=== PATIENT | female | born 1990 | race Two or more races ===

== ENCOUNTER → 2018-05-20 | Outpatient (CLI) | payer MEDICAID ==
[~2018-05-20] MED LIST: HYDR200T77 PO; PREN-127 PO
== END ==
LOC: LAB 14:19
PROVIDERS: ATTEND Obstetrics & Gynecology
DX: Z34.91 Encounter for supervision of normal pregnancy, unspecified, first trimester (principal); B96.89 Other specified bacterial agents as the cause of diseases classified elsewhere
CPT/HCPCS: 36415; 86850; 86900; 86901; 87088

== ENCOUNTER → 2018-05-28 | Outpatient (CLI) | payer SELFPAY ==
[~2018-05-28] MED LIST changes: +FLU60SYR36 IM
== END ==
LOC: LAB 12:47
PROVIDERS: ATTEND Student in an Organized Health Care Education/Training Program
DX: Z34.91 Encounter for supervision of normal pregnancy, unspecified, first trimester (principal)
CPT/HCPCS: 87491; 87591

== ENCOUNTER → 2018-07-31 | Outpatient (CLI) | payer MEDICAID ==
[~2018-07-31] MED LIST changes: +ASPI-760 PO; +CALC-515 PO
[2018-07-31 15:32] LABS: PLATELET COUNT, AUTOMATED 189 K/uL (150-450)
== END ==
LOC: LAB 15:05
DX: M06.1 Adult-onset Still's disease (principal); Z79.899 Other long term (current) drug therapy
CPT/HCPCS: 36415; 82565; 82728; 84450; 85025; 85651

== ENCOUNTER → 2018-09-19 | Outpatient (CLI) | payer OTHER, MEDICAID ==
--- NOTE | 2018-09-19 14:41 | RADIOLOGY IMAGING REPORT ---
FACILITY: PATIENT NAME: Kristin Wilks : 1990 MR: [id number] V: [id number] EXAM DATE: ORDERING PHYSICIAN: DAYAMI GUZMAN TECHNOLOGIST: Location: [facility] - [place] Patient: Kristin Wilks : 1990 Visit/Account:[id number] Date of Sevice: 09/19/2018 [facility] [place] H[place]ORY: Still's disease in COMPARISON: 08/22/2018, 05/28/2018 FINDINGS: Intrauterine gestations: 1 presentation: Vertex heart rate: 156 bpm Amniotic fluid volume: BE 15.6 cm; Largest amniotic fluid pocket 5.3 cm Placenta: Anterior Uterus: Gravid, otherwise normal Maternal adnexa: Negative Cervix: Closed Gestational Parameters: BPD: 6.7 cm; 27 weeks/ 0 days-98 percentile HC: 24.1 cm; 26 weeks/ 2 days-89th percentile AC: 22.4 cm; 26 weeks/ 6 days-96 percentile FL: 4.8 cm; 26 weeks/ 0 days-81st percentile Average ultrasound age (AUA): 26 weeks/ 4 days Estimated weight (EFW): 935 grams +/- 137 grams. Fetus greater than 98 percentile based by LMP . IMPRESSION: 1. IUP of 26 weeks four days. CORTEZ of 12/22/2018. This is six days ahead of the Nicky ultrasound t hat had an CORTEZ calculated at 12/28/2018. It is 15 days ahead of the initial ultrasound that had an CORTEZ calculated at 01/06/2019 Report Dictated By: Lambert Estrada MD at 09/19/2018 2:18 PM Report E-Signed By: Lambert Estrada MD at 09/19/2018 2:36 PM WSN:NATO
== END ==
LOC: US 10:10
PROVIDERS: ATTEND Obstetrics & Gynecology
DX: Z02.9 Encounter for administrative examinations, unspecified (principal)

== ENCOUNTER → 2018-09-26 | Outpatient (CLI) | payer OTHER, MEDICAID ==
[~2018-09-26] MED LIST changes: +BLOO-1511 MC; +BLOO-960 ASDIRECTED; +LANC-608 MC
[2018-09-26 15:45] LABS: PLATELET COUNT, AUTOMATED 147 K/uL (150-450)
== END ==
LOC: LAB 14:38
PROVIDERS: ATTEND Obstetrics & Gynecology
DX: Z34.90 Encounter for supervision of normal pregnancy, unspecified, unspecified trimester (principal); M08.20 Juvenile rheumatoid arthritis with systemic onset, unspecified site
CPT/HCPCS: 36415; 82950; 85025

== ENCOUNTER 2018-09-30 15:14 | Outpatient (RCR) | payer OTHER, MEDICAID ==
--- NOTE | 2018-10-01 10:37 | Medical Nutrition Therapy ---
Nutrition/Food History Breakfast: 1 / cherrios/milk, 1 sl toast, 1 egg, banana Lunch: carrots, egg, chick peas, pasta Dinner: 1c brown rice, chicken/beef, 2c veggies Snacks: fruit, 4-5 gram crackers or pie, cookes Nutritional Education Nutrition Education Topic: Diabetic Nutrition (gestational ) Learning Readiness: Interested Teaching Methods: Discussion, Handout, Demonstration Response to Teaching: Verbalize understanding Teaching Recipient: Patient Nutrition Counseling: Pt states ethnicity from [facility]. Pt declined dental hygiene professor line. Provided diet info for [facility] food culture. Reviewed glycemic response to CHO and increased glycemic response to processed CHO. Identified high and low GI foods pt eats. Provided meal plan of 30-45gm CHO bkfts, 45-60, lunch and supper and 15-30 gm CHO snacks tid. Encouraged pt to decrease portion sizes of CHO and increase protein and healthy fats. Pt will f/u to review meals and Bg 10/06 @ 11:00. Nutrition Monitoring & Eval RD Patient Assessment Time: [address] Assessment Type: RD Education Nutritional Comment: provided 45 minutes diabetes education for gestational DM focusing on nutrition. MINNIE GARG Oct 01, 2018 10:37
--- NOTE | 2018-10-06 12:32 | Medical Nutrition Therapy ---
Nutritional Education Nutrition Education Topic: Diabetic Nutrition Learning Readiness: Interested Teaching Methods: Discussion Response to Teaching: Verbalize understanding Teaching Recipient: Patient Nutrition Counseling: F/U for gestational DM. Pt has no concerns with taking BG. BG reading post meals < 120 except for 1 reading of 120. AB fasting elevated up to 111. Reviewed meals. Pt is eating CHO within her meal plan. Pt states she is hungery between meals and has been eating a snack. Encouraged pt to try increase protein before bedtime and limit CHO or just try protein only at bedtime. Pt did find that she had a lower BG in AM when she walked after supper. Encourage pt to cont exercise. Recommend pt call for any future questions or concerns. BK Nutrition Monitoring & Eval RD Patient Assessment Time: [address] Assessment Type: RD Education Nutritional Comment: provided 30 minutes f/u diabetes education for gestational DM focusing on nutrition and BG monitoring Copies To Copies to: DAYAMI GUZMAN MD ; MINNIE GARG 10, 2019 12:32
== END 2018-10-16 13:02 | disposition home or self-care (01) ==
LOC: DIET 15:14
PROVIDERS: ATTEND Obstetrics & Gynecology
DX: O24.419 Gestational diabetes mellitus in pregnancy, unspecified control (principal)
CPT/HCPCS: G0108 ×3

== ENCOUNTER → 2018-11-14 | Outpatient (CLI) | payer OTHER, MEDICAID ==
[~2018-11-14] MED LIST changes: +DIPH0.5S2 IM; +INSU100I5 SQ; +NEED-498 MC; +RANI-375 PO
--- NOTE | 2018-11-14 10:56 | RADIOLOGY IMAGING REPORT ---
FACILITY: [facility] PATIENT NAME: Kristin Wilks : 1990 MR: [id number] V: [id number] EXAM DATE: ORDERING PHYSICIAN: DAYAMI GUZMAN TECHNOLOGIST: Location: [facility] - [place] Patient: Kristin Wilks : 1990 Visit/Account:[id number] Date of Sevice: 11/14/2018 EXAMINATION: Ultrasound transabdominal OB > 14 weeks with anatomic evaluation HISTORY: Gestational diabetes, still's disease COMPARISON: There for 2018 TECHNIQUE: Transabdominal imaging was performed for assessment of the fetus and maternal pelvic structures. T ransvaginal imaging was not performed. FINDINGS: Placenta: Anterior anterior without previa. Uterus: Gravid, otherwise normal Cervix: Long and closed. Maternal Ovaries: Not visualized. Maternal and other adnexa findings: Not visualized Intrauterine gestations: One. presentation: Vertex heart rate: Normal and regular at 160 bpm Amniotic fluid index: 12.17 cm Largest amniotic fluid pocket: 6.08 cm Gestational Parameters: BPD: 8.98 cm 36 weeks/ three days, greater than 98th percentile HC: 32.16 cm 36 weeks/ three days, 96% AC: 31.26 cm 35 weeks/ two days, greater than 98% FL: 6.94 cm 35 weeks/ five days, 97% Average ultrasound age (AUA): 36 weeks/zero days, CORTEZ 12/12/2018 Estimated gestational age by CORTEZ: 32 weeks/three days, CORTEZ 01/06/2019 Estimated weight (EFW): 2705 grams +/- 395 grams EFW for CORTEZ: Greater than 98% percentile Anatomic Survey: Anatomic survey not performed IMPRESSION: Single viable fetus in vertex presentation with an estimated gestational age by measurem ents of 36 weeks and zero days. The estimated gestational age by LMP is 32 weeks and three days. Estimated weight is 2705 g which is greater than the 98th percentile Report Dictated By: Alma Tolbert MD at 11/14/2018 10:07 AM Report E-Signed By: Alma Tolbert MD at 11/14/2018 10:51 AM WSN:[email or web address]
== END ==
LOC: US 09:32
PROVIDERS: ATTEND Obstetrics & Gynecology
DX: Z02.9 Encounter for administrative examinations, unspecified (principal)

== ENCOUNTER → 2018-11-21 | Outpatient (CLI) | payer OTHER, MEDICAID ==
--- NOTE | 2018-11-21 11:12 | RADIOLOGY IMAGING REPORT ---
FACILITY: [facility] [place] PATIENT NAME: Kristin Wilks : 1990 MR: [id number] V: [id number] EXAM DATE: ORDERING PHYSICIAN: MANAS SAMS TECHNOLOGIST: [place] [facility] [place]in [place] : 1990 Visit/Account:[id number] Date of Sevice: 11/21/2018 EXAMINATION: Limited Transabdominal OB Ultrasound >14 wks Without Full Anatomic Survey 11/21/2018 9:13 AM HISTORY: BE. Gestational diabetes. COMPARISON: 11/14/2018 FINDINGS: Intrauterine gestations: one presentation: vertex heart rate: 149 bpm Amniotic fluid index: 11.8 cm Largest amniotic fluid pocket 5.2 cm Placenta: Anterior without previa Uterus: gravid, otherwise normal Maternal adnexa: Not imaged Cervix: closed Gestational Parameters: Dating measurements were not done. Anatomic Survey: Complete anatomic survey was not performed. IMPRESSION: Single viable IUP in vertex presentation. BE is within normal range, 11.8 cm (MVP 5.2 cm). Report Dictated By: Joseph Yip MD at 11/21/2018 11:05 AM Report E-Signed By: Joseph Yip MD at 11/21/2018 11:09 AM WSN:NATO
== END ==
LOC: US 09:07
PROVIDERS: ATTEND Obstetrics & Gynecology
DX: Z02.9 Encounter for administrative examinations, unspecified (principal)

== ENCOUNTER → 2018-11-28 | Outpatient (CLI) | payer OTHER, MEDICAID ==
--- NOTE | 2018-11-28 13:43 | RADIOLOGY IMAGING REPORT ---
FACILITY: [facility] - [place] PATIENT NAME: Kristin Wilks : 1990 MR: [id number] V: [id number] EXAM DATE: ORDERING PHYSICIAN: DAYAMI GUZMAN TECHNOLOGIST: Location: [facility] [place] Patient: Kristin Wilks : 1990 Visit/Account:[id number] Date of Sevice: 11/28/2018 EXAMINATION: Ultrasound transabdominal OB > 14 weeks with anatomic evaluation HISTORY: Gestational diabetes and third trimester, measure BE COMPARISON: November 21, 2018 TECHNIQUE: Transabdominal imaging was performed for assessment of the fetus and maternal pelvic structures. T ransvaginal imaging was not performed. FINDINGS: Placenta: Anterior without previa. Uterus: Gravid, otherwise normal Cervix: Not evaluated Maternal Ovaries: Not visualized. Maternal and other adnexa findings: Not evaluated Intrauterine gestations: One. presentation: Cephalic heart rate: Normal and regular at 153 bpm Amniotic fluid index: 11.41 cm Largest amniotic fluid pocket: 4.60 cm Gestational Parameters: Dating measurements were not done. IMPRESSION: Single viable fetus in cephalic presentation with an estimated gestational age by LMP of 34 weeks and three days. BE is 11.41 cm (MDP 4.60) Report Dictated By: Alma Tolbert MD at 11/28/2018 1:35 PM Report E-Signed By: Alma Tolbert MD at 11/28/2018 1:38 PM WSN:AMICIVN
== END ==
LOC: RAD 09:00
PROVIDERS: ATTEND Obstetrics & Gynecology
DX: Z02.9 Encounter for administrative examinations, unspecified (principal)

== ENCOUNTER → 2018-12-05 | Outpatient (CLI) | payer OTHER, MEDICAID ==
--- NOTE | 2018-12-05 14:52 | RADIOLOGY IMAGING REPORT ---
FACILITY: [facility] PATIENT NAME: Kristin Wilks : 1990 MR: [id number] V: [id number] EXAM DATE: ORDERING PHYSICIAN: MANAS SAMS TECHNOLOGIST: Location: [facility] Patient: Kristin Wilks : 1990 Visit/Account:[id number] Date of Sevice: 12/05/2018 EXAMINATION: Limited Transabdominal OB Ultrasound >14 wks Without Full Anatomic Survey 12/05/2018 9:15 AM HISTORY: BE COMPARISON: 2017 FINDINGS: Intrauterine gestations: one presentation: vertex heart rate: 149 bpm Amniotic fluid index: 12.3 cm Largest amniotic fluid pocket 6.0 cm Placenta: Anterior without previa Uterus: gravid, otherwise normal Maternal adnexa: negative Cervix: Not well seen due to the position of the head. Gestational Parameters: Dating measurements were not obtained. Anatomic Survey: Complete anatomic survey was not performed. Right hydrocele is noted. IMPRESSION: 1. Single viable IUP in vertex presentation. 2. BE 12.3 cm, MVP 6.0 cm. 3. Right hydrocele is noted around the testicle, likely incidental. Report Dictated By: Joseph Yip MD at 12/05/2018 2:46 PM Report E-Signed By: Joseph Yip MD at 12/05/2018 2:48 PM WSN:NATO
== END ==
LOC: RAD 09:12
PROVIDERS: ATTEND Obstetrics & Gynecology
DX: O24.419 Gestational diabetes mellitus in pregnancy, unspecified control (principal)

== ENCOUNTER → 2018-12-12 | Outpatient (CLI) | payer OTHER, MEDICAID | LOC: LAB 09:05 | PROVIDERS: ATTEND Obstetrics & Gynecology | DX: Z36.85 Encounter for antenatal screening for Streptococcus B (principal) | CPT/HCPCS: 87081 ==

== ENCOUNTER → 2018-12-12 | Outpatient (CLI) | payer OTHER, MEDICAID ==
--- NOTE | 2018-12-12 14:32 | RADIOLOGY IMAGING REPORT ---
[place] [facility] [place]IENT NAME: Kristin Wilks : 1990 MR: [id number] V: [id number] EXAM DATE: ORDERING PHYSICIAN: MANAS SAMS TECHNOLOGIST: Location: [facility] Patient: Kristin Wilks : 1990 Visit/Account:[id number] Date of Sevice: 12/12/2018 EXAMINATION: Ultrasound transabdominal OB > 14 weeks with anatomic evaluation HISTORY: Gestational diabetes COMPARISON: December 05, 2018 TECHNIQUE: Transabdominal imaging was performed for assessment of the fetus and maternal pelvic structures. T ransvaginal imaging was not performed. FINDINGS: Placenta: Anterior without previa. Uterus: Gravid, otherwise normal Cervix: Long and closed. Maternal Ovaries: Not visualized. Maternal and other adnexa findings: Not visualized Intrauterine gestations: One. presentation: Cephalic heart rate: Normal and regular at 139 bpm Amniotic fluid index: 14.07 cm Largest amniotic fluid pocket: 5.34 cm Gestational Parameters: BPD: 9.55 cm 39 weeks/ zero days, greater than 98% HC: 33.97 cm 39 weeks/ one days, 83% AC: 33.49 cm 37 weeks/ three days, 85% FL: 7.52 cm 38 weeks/ four days, 90% Average ultrasound age (AUA): 38 weeks/four days, CORTEZ 12/22/2018 Estimated gestational age by CORTEZ: 36 weeks/three days, CORTEZ 01/06/2019 Estimated weight (EFW): 3376 grams +/- 493 grams EFW for CORTEZ: 90 percentile Anatomic Survey: Anatomic survey was not performed: again noted is a hydrocele IMPRESSION: Single viable fetus in cephalic presentation with an estimated gestational age of 38 wee ks and four days by measurements. Estimated gestational age by LMP is 36 weeks and three days. Estimated weight is 3376 g which is equivalent to the 90th percentile Report Dictated By: Alma Tolbert MD at 12/12/2018 2:23 PM Report E-Signed By: Alma Tolbert MD at 12/12/2018 2:28 PM WSN:JOCE
== END ==
LOC: RAD 08:59
PROVIDERS: ATTEND Obstetrics & Gynecology
DX: Z02.9 Encounter for administrative examinations, unspecified (principal)

== ENCOUNTER → 2018-12-19 | Outpatient (CLI) | payer OTHER, MEDICAID ==
--- NOTE | 2018-12-19 10:09 | RADIOLOGY IMAGING REPORT ---
FACILITY: [facility] - [place] PATIENT NAME: Kristin Wilks : 1990 MR: [id number] V: [id number] EXAM DATE: ORDERING PHYSICIAN: DAYAMI GUZMAN TECHNOLOGIST: Location: [facility] [place] Patient: Kristin Wilks : 1990 Visit/Account:[id number] Date of Sevice: 12/19/2018 EXAMINATION: Ultrasound transabdominal OB > 14 weeks with anatomic evaluation HISTORY: Gestational diabetes COMPARISON: December 12, 2018, limited study for BE TECHNIQUE: Transabdominal imaging was performed for assessment of the fetus and maternal pelvic structures. T ransvaginal imaging was not performed. FINDINGS: Placenta: Anterior without previa. Uterus: Gravid, otherwise normal Cervix: Long and closed. Maternal Ovaries: Not visualized. Maternal and other adnexa findings: Not visualized Intrauterine gestations: One. presentation: Cephalic heart rate: Normal and regular at 142 bpm Amniotic fluid index: 10.77 cm Largest amniotic fluid pocket: 4.75 cm Gestational age by LMP is 37 weeks and three days. Incidentally noted is a hydrocele IMPRESSION: BE measured 10.77 cm. The largest pocket 4.75 cm. Estimated gestational age by LMP is 37 weeks and three days Incidental note of a hydrocele again seen Report Dictated By: Alma Tolbert MD at 12/19/2018 10:00 AM Report E-Signed By: Alma Tolbert MD at 12/19/2018 10:04 AM WSN:AMICIVN
== END ==
LOC: RAD 09:10
PROVIDERS: ATTEND Obstetrics & Gynecology
DX: O24.419 Gestational diabetes mellitus in pregnancy, unspecified control (principal)

== ENCOUNTER 2018-12-25 22:23 | Inpatient (IN) | payer OTHER, MEDICAID ==
[~2018-12-25] VITALS: Ht 162.6 cm; Wt 76.7 kg
[~2018-12-25 22:23] MED LIST changes: -RANI-375 PO; +RANI-886 PO
[2018-12-25] MEDS ORDERED: FAMOTIDINE(*) 20MG/50ML PREMIX 50 ML IVPB PRN (23:19)
[2018-12-25] MEDS ORDERED: ceFAZolin(*) 2GM/D5W 50ML 50 ML IVPB PRN (23:19)
[2018-12-25] MEDS ORDERED: OXYTOCIN 30 UNIT/NS 500 ML 500 ML IV PRN (23:19)
[2018-12-25] MEDS ORDERED: METOCLOPRAMIDE 10 MG/2 ML SDV IVP PRN (23:20)
[2018-12-25] MEDS ORDERED: LIDOCAINE 1% LOCAL 300 MG/30ML INJ PRN (23:20)
[2018-12-25] MEDS ORDERED: FLUSH 10 ML SYR IVP PRN (23:20)
[2018-12-25] MEDS ORDERED: fentaNYL CITR 100 MCG/2 ML AMP IVP PRN (23:20)
[2018-12-25] MEDS ORDERED: INSULIN DETEMIR 100 UN/ML VIAL SUBQ ONE (23:50)
[2018-12-26] VITALS (13 sets, daily range): BP systolic 89–127; BP diastolic 49–79; Ht 162.6 cm; Wt 76.7 kg
[2018-12-26 00:39] LABS: PLATELET COUNT, AUTOMATED 105 K/uL (150-450)
[2018-12-26] MEDS: LR(*) 1000 ML BAG 1,000 ML IV SCH ×2 (02:15→05:00)
[2018-12-26] MEDS ORDERED: LIDO/EPI 2% MPF 1:200,000 20ML EPI PRN (02:25)
[2018-12-26] MEDS ORDERED: FENTANYL/ROPIVACAINE 100 ML BAG EPI PRN (02:25)
[2018-12-26] MEDS ORDERED: diphenhydrAMINE 50 MG/ML VIAL IV PRN (02:25)
[2018-12-26] MEDS ORDERED: LIDOCAINE/PF 2% 200MG/10ML AMP 200 MG/10 ML AMPUL EPI PRN (02:25)
[2018-12-26] MEDS ORDERED: fentaNYL CITR 100 MCG/2 ML AMP IT PRN (02:25)
[2018-12-26] MEDS ORDERED: ONDANSETRON 4 MG/2 ML VIAL IVP PRN (02:25)
[2018-12-26] MEDS ORDERED: BUPIVACAINE 0.5% INJ 30ML VIAL EPI PRN (02:25)
[2018-12-26] MEDS ORDERED: BUPIVACAINE 0.25% MPF INJ EPI PRN (02:25)
--- NOTE | 2018-12-26 02:41 | History & Physical ---
History of Present Illness Age of Patient: 28 : 1 Para or TPAL: 0 EDC per LMP: Jan 06, 2019 Estimated Gestational Age: 38.3 Chief Complaint Pt is a at 38 3/7 by LMP and first trimester US with an CORTEZ of 01/06/19 here today because she reports leaking of clear fluid at 2130 on 12/25/18 at home. + FM and no vaginal bleeding. She started contractions every 5-6 minutes after that time, but they were not painful. She had a scheduled medical induction on 12/29/18 for A2GDM and also has a history fo Stills disease that has been managed by and Dr Dobbins who recommended she be induced at 39 07 She denies RESENDEZ, vision changes, or RUQ/epigastric pain. History Patient's Blood Type: B Positive Rubella Status: Immune Group B Strep Screen: Negative Allergies: Coded Allergies: No Known Drug Allergies (Unverified , 05/20/18) Social History: Denies tobacco, ETCOh and illicit drug including marijuana. She is and monogomous Family History: FH: hypertension FATHER MOTHER Med Rec Home Meds Active Scripts [place], Insulin Disposable (INSULIN PEN NEEDLE) 1 Each Dis.needle, EACH MC DAILY, #1 1 Refill Use to inject insulin sub q QHS Prov:DAYAMI GUZMAN MD 11/14/18 Insulin Detemir 100 UN/ML PEN (Levemir Flextouch) 100 Unit/1 Ml Insuln.pen, 20 UNITS SQ QHS, #2 EACH 2 Refills Prov:DAYAMI GUZMAN MD 11/14/18 Ranitidine Hcl (ZANTAC 75) 75 Mg Tablet, 75 MG PO BID for 30 Days, #30 TAB 3 Refills Prov:MANAS SAMS DO 11/14/18 Lancets (COMFORT LANCETS) 1 Each Each, EACH MC QID, #100 6 Refills Prov:DAYAMI GUZMAN MD 09/26/18 Blood-Glucose Meter (BLOOD GLUCOSE METER) 1 Each Each, EACH ASDIRECTED DIRECTED, #1 FSBS QID Prov:DAYAMI GUZMAN MD 09/26/18 Blood Sugar Diagnostic (GLUCOSE TEST STRIP) 1 Each Strip, 1 EACH MC QID, #100 STRIP 6 Refills Prov:DAYAMI GUZMAN MD 09/26/18 Reported Medications Calcium Carbonate (TUMS) 200 Mg Tab.chew, 200 MG PO PRN, TAB.CHEW 07/31/18 Aspirin (LOW DOSE ASPIRIN EC) 81 Mg Tablet.dr, 81 MG PO 07/31/18 Vits W-Ca,Fe,Fa(<1MG) ( VITAMINS) 1 Each Tablet, 1 EACH PO DAILY, TAB 05/20/18 Hydroxychloroquine Sulfate (PLAQUENIL) 200 Mg Tablet, 200 MG PO BID 05/20/18 Review of Systems Constitutional: No Fever Neurological: No Syncope, No Dizziness Eyes: No Vision Change Cardiovascular: No Chest Pain Respiratory: No Shortness of Breath Gastrointestinal: No Nausea, No Vomiting, No Diarrhea; Abdominal Pain (moderate contraction pain at the time of this note) Musculoskeletal: No Pain Psychiatric: No Depression, No Anxiety Exam General Exam General Apperance: Alert/Awake/No Acute Distress Neuro: No Gross deficits Eyes: Normal Extraocular Movement & Vison ENT: Normal Cardiovascular: Regular Rate and Rhythm Respiratory: No Respiratory Distress Abdomen: Gravid - Non-Tender, RUQ Non-Tender Musculoskeletal: No Weakness/Pain Integumentary: Skin Intact without Lesions or Rash Psychological: Alert & Oriented X3, Appropriate Mood & Affect Vaginal Discharge/Fluid?: Bloody Show, Clear Fluid, Small Amount Cervical Dialation: 5 (not rechecked from nurses SVE) Cervical Effacement (%): 85 Cervical Consistency: Soft Cervical Position: Mid Station: -1 Presentation: Vertex Uterine Contractions(Q min): 2 Uterine Contraction Strength: Moderate UC Resting Tone: Soft Fetus Feeling Movement?: Yes Heart Tones: 150 Heart Tone Variabilty: Moderate FHT Accelerations: Present, 15X15 FHT Decelerations: None FHT Category: I Medical Decision Making Data Points Result Diagram: 12/25/18 0021 Assessment and Plan SUBWAY GUARD Assessment: Stable SUBWAY GUARD Plan: Routine Labor Care Problems: (1) SROM (spontaneous rupture of membranes) Onset Date: 12/25/2018 Status: Acute Assessment & Plan: SN is a 28 y.o. at 38w3d wks with an Estimated Date of Delivery: 01/06/19 dated by definite LMP and first trimester US here today with complaints of leaking of fluid Labor state: Active labor, good cervical change since admission at 2300 12/24/09 with +SROM with amnisure, expectant management at this time as pt is having a re gular, strong contraction pattern. Pt is requesting an epidural now, so after placed encourage side to side extreme lateral with peanut ball in place to facilitate descent. BS q 1 hour to keep between 72-120. Will consult OB for insulin if needed well-being: Category I FHT: Continuous monitoring for A2GDM and epidural Maternal well-being: VSS. normotensive and afebrile, SROM at 2130 on 12/25/18 at home for clear moderate fluid PNL: GBS Neg, Type/Rh B+, rubella Immune Pain Management: Requesting an epidural now Feed: Breast PPBCM: Thinking about the [place] c/b: * Maternal Stills Disease: Managed by Dr. Rivera and Dr Dobbins: Plaquenil 200mg BID * LGA: last growth US was 90%tile on 12/12/18 * right hydrocele: Will make Peds aware after delivery * A2GDM: on Levamir 20 units at HS with good control Anticipate , re-evaluate in 2-3 hours or prn (2) GDM, class A2 Assessment & Plan: Q 1 hour BS to keep between 72- 120. If greater than 120 will consult OB for insulin management. (3) 38 weeks gestation of Status: Acute (4) Still's disease Status: Chronic MICHA JAMES CNM December 26, 2018 02:41
[2018-12-26] MEDS ORDERED: ePHEDrine 25 MG/5 ML DISP.SYR IVP ONE (02:56)
--- NOTE | 2018-12-26 03:39 | Anesthesia OB Pre-Anes Eval ---
History of Present Illness Anesthesia Start Date: December 26, 2018 Anesthesia Start Time: 01:45 OB Anesthesia Diagnosis: spontaneous labor, spontaneous ROM Current Complication: diabetes, other (Still's disease (autoimmune inflamatory disease) steroids stopped 3 mos prior to ) Complications: none known EDC: Jan 06, 2019 : 1 Para: 0 Vital Signs: 110/70 96%, 19, 106 97.6F Pain Ratin Result Diagram: 12/25/18 0021 Height (Inches): 66 Weight (Pounds): 169 BMI (kg/m2): 27 Past Medical History Medical History: diabetes (insulin dependant) Surgical History: other (wisdom teeth) Previous Anesthesia: general, other Attended Childbirth Classes?: No Hx Anesthesia Reactions: No Hx Family Anesthesia Reaction: No Home Meds Active Scripts Oxycodone Hcl/Acetaminophen (PERCOCET 5-325 MG TABLET) 1 Each Tablet, 1 TAB PO Q4-6H PRN for pain, #30 TAB 0 Refills Prov:DAYAMI GUZMAN MD 12/26/18 [place], Insulin Disposable (INSULIN PEN NEEDLE) 1 Each Dis.needle, EACH MC DAILY, #1 1 Refill Use to inject insulin sub q QHS Prov:DAYAMI GUZMAN MD 11/14/18 Insulin Detemir 100 UN/ML PEN (Levemir Flextouch) 100 Unit/1 Ml Insuln.pen, 20 UNITS SQ QHS, #2 EACH 2 Refills Prov:DAYAMI GUZMAN MD 11/14/18 Ranitidine Hcl (ZANTAC 75) 75 Mg Tablet, 75 MG PO BID for 30 Days, #30 TAB 3 Refills Prov:MANAS SAMS DO 11/14/18 Lancets (COMFORT LANCETS) 1 Each Each, EACH MC QID, #100 6 Refills Prov:DAYAMI GUZMAN MD 09/26/18 Blood-Glucose Meter (BLOOD GLUCOSE METER) 1 Each Each, EACH ASDIRECTED DIRECTED, #1 FSBS QID Prov:DAYAMI GUZMAN MD 09/26/18 Blood Sugar Diagnostic (GLUCOSE TEST STRIP) 1 Each Strip, 1 EACH MC QID, #100 STRIP 6 Refills Prov:DAYAMI GUZMAN MD 09/26/18 Reported Medications Calcium Carbonate (TUMS) 200 Mg Tab.chew, 200 MG PO PRN, TAB.CHEW 07/31/18 Aspirin (LOW DOSE ASPIRIN EC) 81 Mg Tablet.dr, 81 MG PO 07/31/18 Vits W-Ca,Fe,Fa(<1MG) ( VITAMINS) 1 Each Tablet, 1 EACH PO DAILY, TAB 05/20/18 Hydroxychloroquine Sulfate (PLAQUENIL) 200 Mg Tablet, 200 MG PO BID 05/20/18 Allergies: Coded Allergies: No Known Drug Allergies (Unverified , 05/20/18) Anesthesia OB ROS ENT: Denies Tooth caps, Denies Loose teeth, Denies Chipped teeth, Denies Dentures, Denies Bridges, Denies Retainers, Denies Veneers, Denies Implants, Denies Tongue ring, Denies Other Pulmonary: No asthma, No smoker (pks/day/yrs), No other Airway Class: ll Cardiovascular ROS: No edema, No arrhythmia, No other GI ROS: clear liquids Last Solids Date: December 25, 2018 Last Solids Time: 21:00 ROS: No Herpes, No STD(s), No Liver Disease, No Renal Disease, No Other Endocrine ROS: diabetes Musculoskeletal ROS: other (Still's disease) ASA Classification: 3 (DM and stills ds.) Assessment and Plan Anesthesia Plan: CSE Assessment: Calm cooperative female with supportive at her side. Full review of consent with both present. Questions answered. Anesthesia Stop Day: December 26, 2018 Anesthesia Stop Time: 10:26 (Pt with epidural to OR at 0912 for primary section. Arrest of descent stage II labor. Alexander. ) Epidural Catheter Removal: Removed Catheter Intact, Yes, Removed by: (RN) KATIE QUINTERO CRNA December 26, 2018 03:39
--- NOTE | 2018-12-26 03:49 | Procedure Note ---
Anesthetic Placement Note Anesthesia Plan: CSE Permit for Anesthesia Signed: Yes Anesthesia Technique: Patient Sitting Anesthesia Prep: Chlorhexidine Interspace: L 4-5 Local Anesthetic: 1% Lidocaine, 25 Gauge Needle Amount Local - cc's: 2 Anesthesia Needle: 17g Touhy/Schliff Anesthesia Attempts: 1 Loss of Resistance: Normal Saline Depth of ABHAY (cm): 4 Epidural Needle Placement: No CSF, No Blood, No Parasthesia Intrathecal Needle: 27 Gauge Pencan Cerebral Spinal Fluid: Yes Catheter Insertion (cm): 3 Catheter Type: Brown - Spring Wound Epidural Dressing: Tegaderm, Tape Anesthesia Tray: Lot Number ([id number]), Expiration Date (2020-03-29), Reference Number ([id number]) Comment: Sterile procedure: traffic stopped, MULTIPLE COIL WINDER scrub, sterile gloves, mask and hat to MULTIPLE COIL WINDER and patient. Anesthesia Medications: Intrathecal Dose: mcg Fentanyl (18), mg Marcaine MPF (0.25% 1.25 ml), Time (0252) Epidural Test Dose: 1.5 Lido/Epi (1:200,000), Dose - mL (3), Time (0254), Negative Epidural Infusion: 0.2% Ropivicaine, With Fentanyl 2mcg/ml, Start Time: (0318) Epidural Pump Setting: Bolus Dose - mL (5), Lockout - Minutes (20), Maintenance Rate - mL/hr (7), Maximum per Hour - mL (22) Complications: None Comment: Pain decrease from 7/10 to 0/10 within 3 minutes after intrathecal KATIE QUINTERO CRNA December 26, 2018 03:49
--- NOTE | 2018-12-26 05:57 | Labor Progress Note ---
Labor Subjective Progress Notes Subjective Pt is has been sleeping for the past 2 hours after her epidural placement. She is starting to feel rectal pressure and pushed her PCEA button once recently. Feeling Movement?: Yes Vaginal Discharge/Fluid: Bloody Show, Clear Fluid, Moderate Amount Labor Pain: Comfortable (feeling rectal pressure) Neurological: No Headache Eyes: No Visual Disturbances Labor Objective Vital Signs Vital Signs Date Time Temp Pulse Resp B/P (MAP) Pulse Ox O2 Delivery O2 Flow Rate FiO2 12/26/18 04:25 98.1 93 20 127/79 (95) 97 Room Air Vaginal Discharge/Fluid?: Bloody Show, Clear Fluid Cervical Dialation: 10 Cervical Effacement (%): 100 Cervical Consistency: Soft Cervical Position: Anterior Station: +1 Presentation: Vertex Uterine Contractions(Q min): 1.5 Uterine Contraction Strength: Strong UC Resting Tone: Soft Fetus Estimated Weight(grams): 3700 Heart Tones: 130 Heart Tone Variabilty: Moderate FHT Accelerations: Present, 15X15 FHT Decelerations: Early FHT Category: I General Exam General Appearance: Alert/Awake/No Acute Distress ENT: Normal Neck: No Masses Cardiovascular: Normal Rhythm & Peripheral Pulses Respiratory: No Respiratory Distress Abdomen: Gravid - Non-Tender, RUQ Non-Tender : Normal Musculoskeletal: No Weakness/Pain Extremities: No Cyanosis,Clubbing or Edema Integumentary: Skin Intact without Lesions or Rash Psychological: Alert & Oriented X3, Appropriate Mood & Affect Other Result Diagram: 12/25/18 0021 Assessment and Plan Problems: (1) SROM (spontaneous rupture of membranes) Onset Date: 12/25/2018 Status: Acute Assessment & Plan: SN is a 28 y.o. at 38w3d wks with an Estimated Date of Delivery: 01/06/19 dated by definite LMP and first trimester US here today with complaints of leaking of fluid Labor state: Approaching second stage, complete dilation with good descent. Educating patient and on pushing techniques. Dr Landaverde is on her way to be present for pushing if complications arise as baby is LGA. Continue laboring down side lying with peanut ball in place to encourage descent. well-being: Category I FHT: Continuous monitoring for A2GDM and epidural Maternal well-being: VSS. normotensive and afebrile, SROM at 2130 on 12/25/18 at home for clear moderate fluid PNL: GBS Neg, Type/Rh B+, rubella Immune Pain Management: Comfortable with epidural, feeling rectal pressure Feed: Breast PPBCM: Thinking about the Kyleena c/b: * Maternal Stills Disease: Managed by Dr. Rivera and Dr Dobbins: Plaquenil 200mg BID * LGA: last growth US was 90%tile on 12/12/18 * right hydrocele: Will make Peds aware after delivery * A2GDM: on Levamir 20 units at HS with good control Anticipate , provider continuously at bedside for pushing (2) GDM, class A2 Assessment & Plan: Q 1 hour BS to keep between 72- 120. If greater than 120 will consult OB for insulin management. (3) 38 weeks gestation of Status: Acute (4) Still's disease Status: Chronic MICHA JAMES CNM December 26, 2018 05:56
--- NOTE | 2018-12-26 06:52 | Anesthesia Progress Note ---
Progress/Maintenance Anesthesia Note Date: December 26, 2018 Anesthesia Note Time: 06:50 Pain Intensity: 1 Pump: On Pump Rate (ML/HR): 7 Sensory Level: T10 Motor Level: Bending Knees-Bilateral Dilatation: 10 (Complete) Position: Semi-Fowlers (Dr. Rosa Waite at bedside. Pt ready to push.) KATIE QUINTERO CRNA December 26, 2018 06:52
--- NOTE | 2018-12-26 08:47 | Labor Progress Note ---
Labor Subjective Progress Notes Subjective Pt is feeling a lot of lower abdominal discomfort and is continuing to push with her best effort. We verbalizes her understanding of the possibility of csection because of slow descent. Feeling Movement?: Yes Vaginal Discharge/Fluid: Bloody Show, Clear Fluid Labor Pain: Mild Neurological: No Headache Eyes: No Visual Disturbances Labor Objective Vital Signs Vital Signs Date Time Temp Pulse Resp B/P (MAP) Pulse Ox O2 Delivery O2 Flow Rate FiO2 12/26/18 04:25 98.1 93 20 127/79 (95) 97 Room Air Cervical Dialation: 10 Cervical Effacement (%): 100 Cervical Position: Anterior Station: +2 Presentation: Vertex UC Resting Tone: Soft Fetus Estimated Weight(grams): 3700 Heart Tones: 125 Heart Tone Variabilty: Moderate FHT Accelerations: Present General Exam General Appearance: Alert/Awake/No Acute Distress ENT: Normal Cardiovascular: Normal Rhythm & Peripheral Pulses Respiratory: No Respiratory Distress Abdomen: Gravid - Non-Tender, RUQ Non-Tender Musculoskeletal: No Weakness/Pain Extremities: No Cyanosis,Clubbing or Edema Integumentary: Skin Intact without Lesions or Rash Psychological: Alert & Oriented X3, Appropriate Mood & Affect Other Result Diagram: 12/25/18 0021 Assessment and Plan Problems: (1) SROM (spontaneous rupture of membranes) Onset Date: 12/25/2018 Status: Acute Assessment & Plan: SN is a 28 y.o. at 38w3d wks with an Estimated Date of Delivery: 01/06/19 dated by definite LMP and first trimester US here today with complaints of leaking of fluid Labor state: Second stage and pushing for [address] Landaverde aware that pt is starting to make progress. Dr Landaverde did discuss assisted vaginal delivery and delivery if we have an arrest of descent. Pt continues to push with good effort, with rectal bulging. Large amount of caput noted on head. Saima Doran called to evaluate progress. well-being: Category I FHT: Continuous monitoring for A2GDM and epidural Maternal well-being: VSS. normotensive and afebrile, SROM at 2130 on 12/25/18 at home for clear moderate fluid PNL: GBS Neg, Type/Rh B+, rubella Immune Pain Management: Comfortable with epidural, feeling rectal pressure Feed: Breast PPBCM: Thinking about the Kyleena c/b: * Maternal Stills Disease: Managed by Dr. Rivera and Dr Dobbins: Plaquenil 200mg BID * LGA: last growth US was 90%tile on 12/12/18 * right hydrocele: Will make Peds aware after delivery * A2GDM: on Levamir 20 units at HS with good control Anticipate , provider continuously at bedside for pushing (2) GDM, class A2 (3) 38 weeks gestation of Status: Acute (4) Still's disease Status: Chronic MICHA JAMES CNM December 26, 2018 08:47
--- NOTE | 2018-12-26 09:12 | Labor Progress Note ---
Labor Subjective Progress Notes Subjective pt feeling pressure and pain Labor Objective Vital Signs Vital Signs Date Time Temp Pulse Resp B/P (MAP) Pulse Ox O2 Delivery O2 Flow Rate FiO2 12/26/18 04:25 98.1 93 20 127/79 (95) 97 Room Air Cervical Dialation: 10 Cervical Effacement (%): 100 Station: +1 Presentation: Vertex Uterine Contraction Strength: Strong UC Resting Tone: Soft Fetus Heart Tones: 140 Heart Tone Variabilty: Moderate FHT Accelerations: 15X15 Other Result Diagram: 12/25/18 0021 Assessment and Plan Problems: (1) SROM (spontaneous rupture of membranes) Onset Date: 12/25/2018 Status: Acute Assessment & Plan: PT progressed to 10 cm spontaneously after SROM. She pushed with good effort for 2.5 hours. station never passed +1. Fetus suspected LGA in an insulin dependent mom. Pt counseled on need for PLTCS. Risks, benefits and alternatives were discussed. Informed consent obtained. Will give 2gm ancef for perioperative prophylaxis. Peds and anesthesia notified. (2) GDM, class A2 (3) 38 weeks gestation of Status: Acute (4) Still's disease Status: Chronic MANAS SAMS DO December 26, 2018 09:12
[2018-12-26] MEDS ORDERED: DLR(*) 1000 ML BAG 1,000 ML IV PRN (10:21)
[2018-12-26] MEDS ORDERED: OXYTOCIN 30 UNIT/D5LR 500 ML 500 ML IV PRN (10:21)
[2018-12-26] MEDS ORDERED: MAGNESIUM HYDROXIDE* 30ML UDCP PO PRN (10:25)
[2018-12-26] MEDS ORDERED: LANOLIN OINT 7 GM TUBE TP PRN (10:25)
[2018-12-26] MEDS ORDERED: ONDANSETRON 4 MG/2 ML VIAL IV PRN (10:25)
[2018-12-26] MEDS ORDERED: SIMETHICONE 80 MG CHEW CHEW PRN (10:25)
[2018-12-26] MEDS ORDERED: PROMETHAZINE 25 MG/ML 1 ML AMP IVP PRN (10:25)
[2018-12-26] MEDS ORDERED: FAMOTIDINE(*) 20MG/50ML PREMIX 50 ML IVPB ONE (10:54)
[2018-12-26] MEDS ORDERED: ceFAZolin(*) 2GM/D5W 50ML 50 ML IVPB ONE (10:55)
[2018-12-26] MEDS ORDERED: NALBUPHINE HCL 10 MG/ML AMP IVP PRN (11:35)
[2018-12-26] MEDS ORDERED: SCOPOLAMINE 1.5 MG PATCH TD PRN (11:35)
[2018-12-26] MEDS ORDERED: NALOXONE HCL 0.4 MG/ML VIAL IV PRN (11:35)
[2018-12-26] MEDS ORDERED: KETOROLAC 30 MG/ML VIAL ONE (11:40)
[2018-12-26] MEDS: KETOROLAC 30 MG/ML VIAL IVP SCH ×2 (12:03→18:08)
--- NOTE | 2018-12-26 12:06 | Post Operative Note ---
Operative Note - FE[employer] ASSOCIATE Operative Day Date: December 26, 2018 Physicians Surgeon: Saima Structural Layout Worker: Zack ANGELES Anesthesia: Epidural with bolus Diagnosis Pre-Op Diagnosis: IUP at 38 weeks, GDMA2, SROM, arrest of descent in the second stage of labor Post-Op Diagnosis: Same as above with delivery of a viable male , 7lb 15 oz Procedure Findings: Normal appearing uterus, tubes and ovaries Procedure(s): PLTCS Specimen Removed:(Maybe N/A): Placenta, umbilical cord blood Complications: None Fluids Estimated Blood Loss: 500 cc Dictated Date OP Note Dictated: December 26, 2018 MANAS SAMS DO December 26, 2018 12:06
--- NOTE | 2018-12-26 12:33 | OPERATIVE REPORT 1 ---
EVENT DATE: December 26, 2018 SURGEON: Milly Landaverde MD ANESTHESIOLOGIST: [*] ANESTHESIA: Epidural with bolus. SOLUTIONS OPERATOR: Deena Dixon CNM PREOPERATIVE DIAGNOSES 1. Intrauterine at 38 weeks. 2. Gestational diabetes, class A2. 3. Spontaneous rupture of membranes. 4. Arrest of descent in second stage of labor. POSTOPERATIVE DIAGNOSES 1. Intrauterine at 38 weeks. 2. Gestational diabetes, class A2. 3. Spontaneous rupture of membranes. 4. Arrest of descent in second stage of labor. 5. Delivery of viable male weighing 7 pounds 15 ounces. PROCEDURE PERFORMED Primary low transverse section. TISSUES REMOVED Placenta and umbilical cord blood. ESTIMATED BLOOD LOSS 500 cc. COMPLICATIONS None. DISPOSITION Stable to recovery room. DESCRIPTION OF PROCEDURE After informed consent was obtained, the patient was taken to the operating room. Epidural anesthesia was found to be adequate. Patient was placed on the operating table in the supine position with leftward tilt and prepped and draped in normal sterile fashion. Pfannenstiel skin incision was made using a scalpel and carried down to the underlying layer of the fascia. Fascia was incised in the midline and extended out laterally with sharp dissection. Pretty clamps were then used to elevate the superior and inferior aspect of the fascial incision and the underlying rectus muscles were dissected off sharply. Rectus muscles were then in the midline. Peritoneum was entered digitally. Peritoneal incision was extended out laterally with sharp dissection with good visualization of both bowel and bladder. At this time, the Sergio abdominal retractor was placed and secured. The lower uterine segment was then incised in a transverse curvilinear fashion using the scalpel. Hysterotomy incision was extended out laterally with blunt dissection. 's head was delivered atraumatically followed by the shoulders and body. was vigorous at . Nose and mouth were bulb suctioned. Three vessel cord was doubly clamped and cut after a 30-second delay. Infant was then passed off to awaiting pressing machine operator, Dr. Fuentes. Segment of umbilical cord was then doubly clamped and cut and passed off for umbilical cord blood. Placenta was then delivered manually and noted to be intact. Uterus was exteriorized and cleared of all clots and debris. Hysterotomy incision was then repaired in a running lock fashion using 0 Vicryl. Two additional stitches of 0 Vicryl were used along the hysterotomy to ensure hemostasis, one in a [id number] fashion and one in a box-stitch configuration. Irrigation was then performed. The fallopian tubes and ovaries were visualized on both sides and noted to be normal. At this time, the uterus was returned back to the abdomen. Gutters were cleared of any remaining clots and debris. Hysterotomy incision was re-visualized and noted to remain dry. At this time, the Sergio abdominal retractor was removed. The rectus muscles were then reapproximated with a [id number] stitch of 0 Vicryl. Fascial layer was then reapproximated using #1 Vicryl in running fashion. Subcutaneous layer was dried after irrigation and reapproximated wit 3- 0 Vicryl and the skin was closed using a subcuticular stitch of 4-0 Monocryl reinforced with Dermabond skin glue. Patient tolerated the procedure well. Sponge, lap and instrument counts were correct and she was taken to the recovery room in stable condition. RIMA
[2018-12-26] MEDS ORDERED: OXYTOCIN 30 UNIT/NS 500 ML 500 ML IV PRN (13:35)
[2018-12-26] MEDS: oxyCODON/ACET (*)5/325MG (CII) 1 TAB TAB PO PRN (13:38)
[2018-12-26] MEDS ORDERED: HYDROmorphone HCL 2 MG/ML SDV IVP PRN (15:40)
[2018-12-26] MEDS: FAMOTIDINE 20 MG TAB PO SCH (21:00)
[2018-12-26] MEDS: DOCUSATE CALCIUM 240 MG CAP PO SCH (21:00)
[2018-12-26] MEDS ORDERED: IBUP800T37 PO (23:22)
[2018-12-26] MEDS ORDERED: OXYC-865 PO (23:22)
[2018-12-27] MEDS ORDERED: LR(*) 1000 ML BAG 1,000 ML ONE (00:01)
[2018-12-27] MEDS: KETOROLAC 30 MG/ML VIAL IVP SCH (00:09)
[2018-12-27 03:15] VITALS: BP 109/76
[2018-12-27] MEDS: oxyCODON/ACET (*)5/325MG (CII) 1 TAB TAB PO PRN ×5 (06:17→20:54)
[2018-12-27] MEDS: IBUPROFEN 800 MG TAB PO SCH ×2 (06:17→13:57)
[2018-12-27 06:40] LABS: PLATELET COUNT, AUTOMATED 88 K/uL (150-450)
[2018-12-27 07:55] VITALS: BP 106/63
--- NOTE | 2018-12-27 07:58 | OB/GYN Progress Note ---
OB Subjective Progress Notes Subjective Doing well. Pain controlled with oral medications. Tolerating regular diet. Ambulating. Phipps still in. Normal lochia. No preeclampsia symptoms. No chest pain, dizziness or shortness of breath. OB Objective Physical Exam Vital Signs Date Time Temp Pulse Resp B/P (MAP) Pulse Ox O2 Delivery O2 Flow Rate FiO2 12/27/18 03:15 98.7 98 16 109/76 (87) 93 Room Air Intake and Output 12/27/18 07:00 Intake Total 1600 ml Output Total 2390 ml Balance -790 ml Intake Oral 0 ml IV Total 1600 ml Output Urine Total 1890 ml Estimated Blood Loss 500 ml General Appearance: Alert/Awake/No Acute Distress Neurological: No Gross deficits Eyes: Normal Extraocular Movement & Vison Cardiovascular: Normal Rhythm & Peripheral Pulses Respiratory: No Respiratory Distress, Clear to Auscultation Abdomen: Soft, Non-Tender, Non-Distended, Fundus Firm Incision: Clean, Dry, Intact Extremities: No Cyanosis,Clubbing or Edema Integumentary: Skin Intact without Lesions or Rash Psychological: Alert & Oriented X3, Appropriate Mood & Affect Result Diagram: 12/27/18 0605 Assessment and Plan Problems: (1) examination following delivery Assessment & Plan: POD#1 s/p PLTCD. She is doing well. Routine orders other than those listed below. Phipps to come out today. If doing well, will d/c IV later this afternoon also. (2) Postoperative anemia due to acute blood loss Assessment & Plan: Hgb 8.2 this morning. She is asymptomatic for now. Will start iron supplementation. (3) Still's disease Status: Chronic Assessment & Plan: Restart plaquenil today. (4) GDM, class A2 Assessment & Plan: Fasting BS is normal today. Will stop checking blood sugars now and plan 2hr GTT 6 weeks . DAYAMI GUZMAN MD December 27, 2018 07:58
[2018-12-27] MEDS: DOCUSATE CALCIUM 240 MG CAP PO SCH ×2 (08:43→20:54)
[2018-12-27] MEDS: FAMOTIDINE 20 MG TAB PO SCH ×2 (08:43→20:54)
[2018-12-27] MEDS: FERROUS SULFATE 325 MG TAB PO SCH ×2 (08:43→20:54)
[2018-12-27] MEDS: POLYETHYLENE GLYCOL 17 GM PKT PO SCH (08:44)
[2018-12-27] MEDS ORDERED: INFLUENZA VIRUS VAC 0.5ML SYR IM ONLY ONE (09:00)
[2018-12-27] MEDS ORDERED: DIPHTH/TETANUS/ACEL. PERTUSSIS IM ONLY ONE (09:00)
[2018-12-27] MEDS ORDERED: MEASLES,MUMP,RUBELLA VAC 0.5ML SUBQ ONE (09:00)
--- NOTE | 2018-12-27 11:13 | Anesthesia Post Eval Note ---
Anesthesia Post Eval Note Vital Signs Date Time Temp Pulse Resp B/P (MAP) Pulse Ox O2 Delivery O2 Flow Rate FiO2 12/27/18 03:15 98.7 98 16 109/76 (87) 93 Room Air Pt able to participate in Eval: Yes Cardiovascular Status: Satisfactory Respiratory Status: Satisfactory Pain Managment: Satisfactory PO Nausea/Vomiting: Satisfactory Temperature Management: Satisfactory Mental Status: Satisfactory, Alert, Oriented X3 Post-Op Hydration Status: Satisfactory, Tolerating PO Well, Voiding w/o Difficulty Anesthesia Type: CSE Anesthesia Tolerance: Pt is counseled on splinting and utilizing lateral abdominal muscles to sit up. She had considerable incisional pain and sore muscles around the incision, yesterday, and was anxious about this. She reports less pain today and had many questions about expected time of healing and return to a pain free state. These questions were answered and signs of infection reviewed. She denies RESENDEZ, itching or nausea, is steady with ambulation. Her stick beverley is free of redness swelling or drainage. KATIE QUINTERO MACHINERY ERECTOR December 27, 2018 11:13
[2018-12-27 14:30] VITALS: BP 115/72
[2018-12-27 21:00] VITALS: BP 109/70
[2018-12-28] MEDS: IBUPROFEN 800 MG TAB PO SCH ×4 (00:14→22:24)
[2018-12-28 01:00] VITALS: BP 101/68
[2018-12-28] MEDS: oxyCODON/ACET (*)5/325MG (CII) 1 TAB TAB PO PRN ×5 (01:03→20:54)
[2018-12-28 05:02] VITALS: BP 113/69
[2018-12-28 08:05] VITALS: BP 92/61
[2018-12-28] MEDS: DOCUSATE CALCIUM 240 MG CAP PO SCH ×2 (08:18→20:54)
[2018-12-28] MEDS: FAMOTIDINE 20 MG TAB PO SCH ×2 (08:18→20:54)
[2018-12-28] MEDS: POLYETHYLENE GLYCOL 17 GM PKT PO SCH (08:18)
[2018-12-28] MEDS: FERROUS SULFATE 325 MG TAB PO SCH ×2 (08:19→18:10)
--- NOTE | 2018-12-28 09:13 | OB/GYN Progress Note ---
OB Subjective Progress Notes Subjective Pt doing well, denies acute pain. Taking IBU and percocet. Ambulating without dizziness. States she passing gas but no BM yet. Would like to stay one more day to working on breast feeding. GI: POS Flatus; NEG Bowel Movement : Voiding Well, Vaginal Bleeding, Scant Pain: Mild, Tolerating PO Pain Meds Neurological: No Headache OB Objective Physical Exam Vital Signs Date Time Temp Pulse Resp B/P (MAP) Pulse Ox O2 Delivery O2 Flow Rate FiO2 12/28/18 05:02 98.3 92 18 113/69 (84) 93 Room Air Intake and Output 12/28/18 07:00 Intake Total 600 ml Output Total 800 ml Balance -200 ml Intake Oral 600 ml Output Urine Total 800 ml # Voids 3 General Appearance: Alert/Awake/No Acute Distress, Afebrile Neurological: No Gross deficits Eyes: Normal Extraocular Movement & Vison Cardiovascular: Normal Rhythm & Peripheral Pulses Respiratory: No Respiratory Distress, Clear to Auscultation Abdomen: Soft, Non-Tender, Non-Distended, Bowel Sounds Present, Fundus Firm Incision: Clean, Dry, Intact Extremities: No Cyanosis,Clubbing or Edema, Warm Integumentary: Skin Intact without Lesions or Rash Psychological: Alert & Oriented X3, Appropriate Mood & Affect Result Diagram: 12/27/18 0605 Assessment and Plan HEADER UP Assessment: Stable HEADER UP Plan: Routine Post-Op Care Problems: (1) examination following delivery Assessment & Plan: 1. Encouraged to ambulate today. Push fluids 2. Initiated teaching regarding bleeding, and infection 3. support and teaching today. 3. Plan to DC tomorrow. (2) Postoperative anemia due to acute blood loss (3) Still's disease Status: Chronic (4) GDM, class A2 ABDIEL VILLALTA CNM Dec 28, 2018 09:13
[2018-12-28 17:30] VITALS: BP 104/71
[2018-12-28 20:30] VITALS: BP 116/77
[2018-12-29 01:30] VITALS: BP 111/75
[2018-12-29] MEDS: oxyCODON/ACET (*)5/325MG (CII) 1 TAB TAB PO PRN ×2 (01:41→09:03)
[2018-12-29] MEDS: IBUPROFEN 800 MG TAB PO SCH (05:19)
[2018-12-29 05:30] VITALS: BP 119/78
[2018-12-29 07:11] VITALS: BP 113/70
[2018-12-29] MEDS ORDERED: APAP/HYDROCODONE 325/5 TAB PO PRN (08:55)
[2018-12-29] MEDS: POLYETHYLENE GLYCOL 17 GM PKT PO SCH (08:59)
[2018-12-29] MEDS: FAMOTIDINE 20 MG TAB PO SCH (08:59)
[2018-12-29] MEDS: DOCUSATE CALCIUM 240 MG CAP PO SCH (08:59)
[2018-12-29] MEDS: FERROUS SULFATE 325 MG TAB PO SCH (08:59)
--- NOTE | 2018-12-29 09:02 | OB/GYN Progress Note ---
OB Subjective Progress Notes GI: POS Flatus; NEG Nausea, NEG Vomiting, NEG Bowel Movement (Feels she may need to have a BM today, reports some abd cramping but passing gas freely) : Voiding Well Pain: Mild, Tolerating PO Pain Meds Neurological: No Headache OB Objective Physical Exam Vital Signs Date Time Temp Pulse Resp B/P (MAP) Pulse Ox O2 Delivery O2 Flow Rate FiO2 12/29/18 07:11 98.4 87 16 113/70 (84) 95 Room Air Intake and Output 12/29/18 07:00 Intake Total 240 ml Balance 240 ml Intake Oral 240 ml # Voids 2 General Appearance: Alert/Awake/No Acute Distress, Afebrile Neurological: No Gross deficits Eyes: Normal Extraocular Movement & Vison Cardiovascular: Normal Rhythm & Peripheral Pulses Respiratory: No Respiratory Distress, Clear to Auscultation Abdomen: Soft, Non-Tender, Non-Distended, Bowel Sounds Present, Fundus Firm, Non-Tender Incision: Clean, Dry, Intact Extremities: No Cyanosis,Clubbing or Edema, Warm; No Edema Integumentary: Skin Intact without Lesions or Rash Psychological: Alert & Oriented X3, Appropriate Mood & Affect Result Diagram: 12/27/18 0605 Assessment and Plan 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 P/ 1. Will DC to home today with Rx for pain medications and iron 2. Pt to follow up in 2 weeks for incision check or sooner if problems and 6 weeks reviewed s/s of infection 3. Discussed pumping, positioning and nipple care 4. Emergency numbers will be given to patient and . (2) Postoperative anemia due to acute blood loss (3) Still's disease Status: Chronic (4) GDM, class A2 ABDIEL VILLALTA CNM Dec 29, 2018 09:02
--- NOTE | 2018-12-29 09:06 | OB/GYN Discharge Summary ---
Discharge Summary Reason for Hosp/Final Diag: (1) examination following delivery Hospital Course & Plan: A/ Normal PP involution meeting milestones, Incision healing without evidence of infection; ambulatory; voiding and passing flatus P/ 1. Will DC to home today with Rx for pain medications and iron; recommend OTC stool softener, continue vitamins; Tyl and IBU along with Percocet for pain as needed 2. Pt to follow up in 2 weeks for incision check or sooner if problems and 6 weeks reviewed s/s of infection 3. Discussed pumping, positioning and nipple care 4. Emergency numbers will be given to patient and . (2) Postoperative anemia due to acute blood loss (3) Still's disease Status: Chronic (4) GDM, class A2 Lates Vital Signs Vital Signs Date Time Temp Pulse Resp B/P (MAP) Pulse Ox O2 Delivery O2 Flow Rate FiO2 12/29/18 07:11 98.4 87 16 113/70 (84) 95 Room Air Weight (Pounds): 169 Result Diagram: 12/27/18604 Condition: Improved Discharge: Home, Self Longterm Meds Active Scripts Oxycodone Hcl/Acetaminophen (PERCOCET 5-325 MG TABLET) 1 Each Tablet, 1 TAB PO Q4-6H PRN for pain, #30 TAB 0 Refills Prov:DAYAMI GUZMAN MD 12/26/18 [place], Insulin Disposable (INSULIN PEN NEEDLE) 1 Each Dis.needle, EACH MC DAILY, #1 1 Refill Use to inject insulin sub q QHS Prov:DAYAMI GUZMAN MD 11/14/18 Insulin Detemir 100 UN/ML PEN (Levemir Flextouch) 100 Unit/1 Ml Insuln.pen, 20 UNITS SQ QHS, #2 EACH 2 Refills Prov:DAYAMI GUZMAN MD 11/14/18 Ranitidine Hcl (ZANTAC 75) 75 Mg Tablet, 75 MG PO BID for 30 Days, #30 TAB 3 Refills Prov:MANAS SAMS DO 11/14/18 Lancets (COMFORT LANCETS) 1 Each Each, EACH MC QID, #100 6 Refills Prov:DAYAMI GUZMAN MD 09/26/18 Blood-Glucose Meter (BLOOD GLUCOSE METER) 1 Each Each, EACH ASDIRECTED DIRECTED, #1 FSBS QID Prov:DAYAMI GUZMAN MD 09/26/18 Blood Sugar Diagnostic (GLUCOSE TEST STRIP) 1 Each Strip, 1 EACH QID, #100 STRIP 6 Refills Prov:DAYAMI GUZMAN MD 09/26/18 Reported Medications Calcium Carbonate (TUMS) 200 Mg Tab.chew, 200 MG PO PRN, TAB.CHEW 07/31/18 Aspirin (LOW DOSE ASPIRIN EC) 81 Mg Tablet.dr, 81 MG PO 07/31/18 Vits W-Ca,Fe,Fa(<1MG) ( VITAMINS) 1 Each Tablet, 1 EACH PO DAILY, TAB 05/20/18 Hydroxychloroquine Sulfate (PLAQUENIL) 200 Mg Tablet, 200 MG PO BID 05/20/18 Follow up with: [facility] [place], [place] [phone] Follow up in: 6 wks PP or PO, 2 wks PO Discharge Diet: As Tolerates Discharge Activity: No Heavy Lifting x 6 wks, Pelvic Rest ABDIEL VILLALTA CNM Dec 29, 2018 09:06
[2018-12-29] MEDS ORDERED: HYDR-627 PO (09:13)
[2018-12-29] MEDS ORDERED: FERR-53 PO (09:13)
== END 2018-12-29 14:45 | disposition home or self-care (01) | DRG 788 ==
LOC: OB 22:23
PROVIDERS: ADMIT Obstetrics & Gynecology; ATTEND Obstetrics & Gynecology
PROC: 10D00Z1 Extraction of Products of Conception, Low, Open Approach (ICD-10-PCS; principal; 2018-12-26 09:12)
DX: O24.424 Gestational diabetes mellitus in childbirth, insulin controlled (principal); O99.89 Other specified diseases and conditions complicating pregnancy, childbirth and the puerperium; M06.1 Adult-onset Still's disease; O62.1 Secondary uterine inertia; Z3A.38 38 weeks gestation of pregnancy; Z37.0 Single live birth; Z79.4 Long term (current) use of insulin
CPT/HCPCS: 36415; 36416; 82948; 84112; 85025; 86703; 86762; 86850; 86900; 86901; J0690; J1815; J1885; J2270; J2300; J2405; J3490; J7120

== ENCOUNTER → 2019-01-17 | Outpatient (CLI) | payer OTHER, MEDICAID ==
[2018-12-26 04:25] VITALS: BMI 29.0
[~2019-01-17] MED LIST changes: +FERR-53 PO; +HYDR-627 PO; +IBUP800T37 PO; +OXYC-865 PO
[2019-01-17 10:06] LABS: PLATELET COUNT, AUTOMATED 169 K/uL (150-450)
== END ==
LOC: LAB 09:21
PROVIDERS: ATTEND Internal Medicine Rheumatology
DX: M06.1 Adult-onset Still's disease (principal); Z79.899 Other long term (current) drug therapy
CPT/HCPCS: 36415; 82565; 82728; 84450; 85025; 85651

== ENCOUNTER → 2019-02-11 | Outpatient (CLI) | payer OTHER, MEDICAID ==
[2018-12-26 04:25] VITALS: BMI 29.0
== END ==
LOC: LAB 11:33
PROVIDERS: ATTEND Obstetrics & Gynecology
DX: O24.419 Gestational diabetes mellitus in pregnancy, unspecified control (principal)
CPT/HCPCS: 36415; 82947; 82950